=== PATIENT | female | born 1970 | race African-American/Black ===

== ENCOUNTER 2018-08-26 18:17 | Emergency (ER) | payer SELFPAY ==
[~2018-08-26] VITALS: Ht 162.6 cm; Wt 81.6 kg
[2018-08-26 18:44] VITALS: BP 165/81
--- NOTE | 2018-08-26 20:24 | RAD ---
Indication: Right elbow pain atraumatic. TECHNIQUE: 3 views of the right elbow COMPARISON: None FINDINGS: Well-corticated curvilinear bony fragment is seen measuring 9 mm in the region of the ulnar collateral ligament. No acute fracture or dislocation. No elbow joint effusion. IMPRESSION: Calcific density in the region of the ulnar collateral ligament likely calcified ligament from repetitive microtrauma. Nonemergent MRI of the elbow may be of additional benefit. Electronically signed by: Gt Johansen DO (08/26/2018 8:20 PM) [facility]
[2018-08-26] MEDS ORDERED: DICL50TA4 PO (20:40)
[2018-08-26] MEDS ORDERED: METH4TAB2 PO (20:40)
--- NOTE | 2018-08-26 20:40 | PHYS DOC ---
Past Medical History Past Medical History: Anemia Past Surgical History: Other Additional Past Surgical Histo: BILAT CARPAL TUNNEL,L KNEE,R ANKLE,HERNIA Alcohol Use: Occasionally Drug Use: None Adult General Chief Complaint Chief Complaint: UPPER EXTREMITY PAIN HPI HPI Patient is a 48 year old female who presents with 8 out of 10 right elbow pain that has been going on for 3 days. Patient denies any trauma. 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 She states the pain is worse when she takes the elbow through range of motion. She describes the pain as sharp. Review of Systems Review of Systems Constitutional: Denies fever or chills [] Musculoskeletal: Right right elbow pain Integument: Denies rash or skin lesions [] Neurologic: Denies headache, focal weakness or sensory changes [] All other systems were reviewed and found to be within normal limits, except as documented in this note. Allergies Allergies Allergies Coded Allergies Type Severity Reaction Last Updated Verified Iodinated Contrast- Oral and IV Dye Allergy Unknown 08/26/18 Yes iron Allergy Unknown 08/26/18 Yes Physical Exam Physical Exam Constitutional: Well developed, well nourished, no acute distress, non-toxic appearance. [] Skin: Warm, dry, no erythema, no rash. [] Back: No tenderness, no CVA tenderness. [] Extremities: Right elbow with no obvious deformity. No tenderness on palpation of the elbow. Pain elicited during range of motion though patient has full range of motion to the right elbow. Adequate radial, medial, ulnar sensation to the right upper extremity. 2 right radial pulse. Cap refill less than 2 seconds the right fingers. Neurologic: Alert and oriented X 3, normal motor function, normal sensory function, no focal deficits noted. [] Psychologic: Affect normal, judgement normal, mood normal. [] Current Patient Data Vital Signs Vital Signs Date Time Temp Pulse Resp B/P (MAP) Pulse Ox O2 Delivery O2 Flow Rate FiO2 08/26/18 18:44 98.6 76 18 165/81 (109) 97 Room Air 98.6 EKG EKG [] Radiology/Procedures Radiology/Procedures []PROCEDURE: ELBOW RIGHT 3V Indication: Right elbow pain atraumatic. TECHNIQUE: 3 views of the right elbow COMPARISON: None FINDINGS: Well-corticated curvilinear bony fragment is seen measuring 9 mm in the region of the ulnar collateral ligament. No acute fracture or dislocation. No elbow joint effusion. IMPRESSION: Calcific density in the region of the ulnar collateral ligament likely calcified ligament from repetitive microtrauma. Nonemergent MRI of the elbow may be of additional benefit. Electronically signed by: Winter Ly DO (08/26/2018 8:20 PM) [facility] DICTATED and SIGNED BY: WINTER LY DO DATE: 08/26/182017 Course & Med Decision Making Course & Med Decision Making Pertinent Labs and Imaging studies reviewed. (See chart for details) This is a 48-year-old female patient presented to the ED today with right elbow pain, no known injury. Right elbow x-rays interpreted by radiologist were noted for Calcific density in the region of the ulnar collateral ligament likely calcified ligament from repetitive microtrauma. Nonemergent MRI of the elbow may be of additional benefit. Lalo bandage applied to the right elbow by me. Neurovascular exam is intact. Ice elevation encouraged. Discharged with diclofenac and Medrol Dosepak. Provided orthopedic doctor for follow-up. Dragon Disclaimer Dragon Disclaimer This electronic medical record was generated, in whole or in part, using a voice recognition dictation system. Departure Departure Impression: Primary Impression: Elbow pain, right Disposition: 01 HOME, SELF-CARE Condition: STABLE Referrals: UNKNOWN PCP NAME (PCP) WILLY LOCK MD follow-up in 1-2 weeks Patient Instructions: Musculoskeletal Pain Additional Instructions: You were evaluated in the emergency room for right elbow pain. You were noted to have calcified ligament in the right elbow. Ice elevate the extremity. Take the prescribed medications as ordered. Follow-up with your doctor in 1-2 weeks of the provided orthopedic doctor. Scripts Diclofenac Sodium (DICLOFENAC SODIUM) 50 Mg Tablet.dr 1 TAB PO BID, #20 TAB 0 Refills Prov: LUAN MONROY [employer] 08/26/18 Methylprednisolone (MEDROL) 4 Mg Tab.ds.pk 1 PKG PO UD, #1 PKG Prov: LUAN MONROY [employer] 08/26/18 LUAN MONROY APRN Aug 26, 2018 20:40
== END 2018-08-26 20:44 | disposition home or self-care (01) ==
LOC: ER 18:17
DX: M25.521 Pain in right elbow (principal); Z88.8 Allergy status to other drugs, medicaments and biological substances
CPT/HCPCS: 73080; 99283

== ENCOUNTER 2018-09-30 21:35 | Emergency (ER) | payer SELFPAY ==
[~2018-09-30] VITALS: Ht 162.6 cm; Wt 86.2 kg
[~2018-09-30 21:35] MED LIST: DICL50TA4 PO; METH4TAB2 PO
[2018-09-30 22:11] LABS: BASO % 1 % (0-3); EOS # 0.4 x10^3/uL (0.0-0.7); EOS % 7 % (0-3); HEMATOCRIT 30.5 % (36.0-47.0); HEMOGLOBIN 9.9 g/dL (12.0-15.5); LYMPH # 1.6 x10^3/uL (1.0-4.8); LYMPH % 24 % (24-48); MEAN CORPUSCULAR HEMOGLOBIN 25 pg (25-35); MEAN CORPUSCULAR HGB CONC 32 g/dL (31-37); MEAN CORPUSCULAR VOLUME 78 fL (79-100); MONO # 0.7 x10^3/uL (0.0-1.1); MONO % 11 % (0-9); NEUT # 3.7 x10^3uL (1.8-7.7); NEUT % 58 % (31-73); PLATELET COUNT 286 x10^3/uL (140-400); RED CELL DISTRIBUTION WIDTH 15.7 % (11.5-14.5); WHITE BLOOD COUNT 6.4 x10^3/uL (4.0-11.0)
[2018-09-30] MEDS: IV NORMAL SALINE 1000ML BAG 1,000 ML IV SCH (22:11)
[2018-09-30] MEDS: ONDANSETRON PF 4 MG/2 ML VIAL. IV ONE (22:12)
[2018-09-30] MEDS: fentaNYL PF VIAL 100 MCG/2 ML VIAL IV PRN (22:12)
[2018-09-30 22:19] LABS: CREATININE 1.1 mg/dL (0.6-1.0); GFR 63.6; POTASSIUM 3.5 mmol/L (3.5-5.1)
[2018-09-30 22:25] LABS: ALBUMIN 3.1 g/dL (3.4-5.0); ALBUMIN/GLOBULIN RATIO 0.6 (1.0-1.7); TOTAL BILIRUBIN 0.4 mg/dL (0.2-1.0); TOTAL PROTEIN 8.6 g/dL (6.4-8.2)
[2018-09-30 22:34] LABS: BILIRUBIN,URINE NEGATIVE (NEG); CLARITY,URINE CLOUDY; COLOR,URINE YELLOW; NITRITE,URINE NEGATIVE (NEG); PH,URINE 6.5; PROTEIN,URINE NEGATIVE (NEG-TRACE)
[2018-09-30 22:46] LABS: BACTERIA,URINE FEW /HPF (0-FEW); RBC,URINE 0 /HPF (0-2); SQUAMOUS EPITHELIAL CELL,UR MOD /LPF; WBC,URINE OCC /HPF (0-4)
--- NOTE | 2018-09-30 22:55 | PHYS DOC ---
Past Medical History Past Medical History: Anemia, Anxiety, Hypertension Past Surgical History: Other Additional Past Surgical Histo: BILAT CARPAL TUNNEL,L KNEE,R ANKLE,HERNIA Alcohol Use: Occasionally Drug Use: None Adult General Chief Complaint Chief Complaint: OTHER COMPLAINTS [facility] HPI Patient is a 48-year-old female who presents complaining of right-sided back pain that started this morning at about 10:00. Patient states that pain was initially in the right mid to lower back region states the pain has progressively expanded to her upper back and neck as well as down to her right buttock and right leg. She denies any abdominal pain, nausea or vomiting. She also denies any urinary discomfort. She reports no loss of bowel or bladder control and has had no fever. She rates pain at a 9 out of 10 and describes the pain as feeling like her muscles are very tight. She states that pain is worsened with movement and with walking. She states her no alleviating factors. Patient denies any recent injuries. Review of Systems Review of Systems Constitutional: Denies fever or chills [] Respiratory: Denies cough or shortness of breath [] Cardiovascular: No additional information not addressed in HPI [] GI: Denies abdominal pain, nausea, vomiting or diarrhea [] : Denies dysuria or hematuria [] Musculoskeletal: Complains of right-sided back and neck pain [] Integument: Denies rash or skin lesions [] Neurologic: Denies headache, focal weakness or sensory changes [] All other systems were reviewed and found to be within normal limits, except as documented in this note. Current Medications Current Medications Current Medications Medications (Trade) Dose Ordered Sig/Kayli Start Time Stop Time Status Last Admin Dose Admin Fentanyl Citrate (Fentanyl 2ml Vial) 25 mcg PRN Q15MIN PRN 09/30/18 22:00 10/01/18 21:59 09/30/18 22:12 25 MCG Ondansetron HCl (Zofran) 4 mg 1X ONCE 09/30/18 22:00 09/30/18 22:04 DC 09/30/18 22:12 4 MG Sodium Chloride 1,000 ml @ 1,000 mls/hr Q1H 09/30/18 22:00 09/30/18 22:59 09/30/18 22:11 1,000 MLS/HR Allergies Allergies Allergies Coded Allergies Type Severity Reaction Last Updated Verified Iodinated Contrast- Oral and IV Dye Allergy Unknown 08/26/18 Yes iron Allergy Unknown 08/26/18 Yes Physical Exam Physical Exam Constitutional: Well developed, well nourished, no acute distress, non-toxic appearance. [] HENT: Normocephalic, atraumatic, bilateral external ears normal, oropharynx moist, no oral exudates, nose normal. [] Eyes: PERRLA, EOMI, conjunctiva normal, no discharge. [] Neck: Normal range of motion, supple, no stridor. There is reported tenderness to palpation in the right sided suboccipital musculature without palpable spasm [] Cardiovascular: Regular rate and rhythm [] Lungs & Thorax: Bilateral breath sounds clear to auscultation [] Abdomen: Bowel sounds normal, soft, no tenderness. [] Skin: Warm, dry, no erythema, no rash. [] Back: Examination of back demonstrates no spinous point tenderness. There is tissue texture change and findings of mild spasm noted around the thoracic lumbar junction in the area especially T11-12. There is reproducible tenderness throughout the thoracic and lumbar paraspinal musculature. [] Extremities: No tenderness, no cyanosis, no clubbing, ROM intact, no edema. [] Neurologic: Alert and oriented X 3, normal motor function, normal sensory function, no focal deficits noted. [] Current Patient Data Vital Signs Vital Signs Date Time Temp Pulse Resp B/P (MAP) Pulse Ox O2 Delivery O2 Flow Rate FiO2 09/30/18 22:12 20 97 Room Air 09/30/18 22:08 68 166/80 (108) 09/30/18 21:35 97.7 97.7 Lab Values Laboratory Tests Test 09/30/18 21:50 09/30/18 22:25 White Blood Count 6.4 x10^3/uL (4.0-11.0) Red Blood Count 3.90 x10^6/uL (3.50-5.40) Hemoglobin 9.9 g/dL (12.0-15.5) L Hematocrit 30.5 % (36.0-47.0) L Mean Corpuscular Volume 78 fL (79-100) L Mean Corpuscular Hemoglobin 25 pg (25-35) Mean Corpuscular Hemoglobin Concent 32 g/dL (31-37) Red Cell Distribution Width 15.7 % (11.5-14.5) H Platelet Count 286 x10^3/uL (140-400) Neutrophils (%) (Auto) 58 % (31-73) Lymphocytes (%) (Auto) 24 % (24-48) Monocytes (%) (Auto) 11 % (0-9) H Eosinophils (%) (Auto) 7 % (0-3) H Basophils (%) (Auto) 1 % (0-3) Neutrophils # (Auto) 3.7 x10^3uL (1.8-7.7) Lymphocytes # (Auto) 1.6 x10^3/uL (1.0-4.8) Monocytes # (Auto) 0.7 x10^3/uL (0.0-1.1) Eosinophils # (Auto) 0.4 x10^3/uL (0.0-0.7) Basophils # (Auto) 0.0 x10^3/uL (0.0-0.2) Sodium Level 138 mmol/L (136-145) Potassium Level 3.5 mmol/L (3.5-5.1) Chloride Level 103 mmol/L (98-107) Carbon Dioxide Level 29 mmol/L (21-32) Anion Gap 6 (6-14) Blood Urea Nitrogen 8 mg/dL (7-20) Creatinine 1.1 mg/dL (0.6-1.0) H Estimated GFR (Cockcroft-Gault) 63.6 BUN/Creatinine Ratio 7 (6-20) Glucose Level 117 mg/dL (70-99) H Calcium Level 9.0 mg/dL (8.5-10.1) Total Bilirubin 0.4 mg/dL (0.2-1.0) Aspartate Amino Transferase (AST) 28 U/L (15-37) Alanine Aminotransferase (ALT) 39 U/L (14-59) Alkaline Phosphatase 167 U/L (46-116) H Total Protein 8.6 g/dL (6.4-8.2) H Albumin 3.1 g/dL (3.4-5.0) L Albumin/Globulin Ratio 0.6 (1.0-1.7) L Urine Collection Type Unknown Urine Color Yellow Urine Clarity Cloudy Urine pH 6.5 Urine Specific [place] 1.015 Urine Protein Negative mg/dL (NEG-TRACE) Urine Glucose (UA) Negative mg/dL (NEG) Urine Ketones (Stick) Negative mg/dL (NEG) Urine Blood Negative (NEG) Urine Nitrite Negative (NEG) Urine Bilirubin Negative (NEG) Urine Urobilinogen Dipstick 1.0 mg/dL (0.2 mg/dL) Urine Leukocyte Esterase Trace (NEG) Urine RBC 0 /HPF (0-2) Urine WBC Occ /HPF (0-4) Urine Squamous Epithelial Cells Mod /LPF Urine Bacteria Few /HPF (0-FEW) Laboratory Tests 09/30/18 21:50 Laboratory Tests 09/30/18 21:50 EKG EKG [] Interpretation Time: EKG demonstrates normal sinus rhythm with rate of 68. Radiology/Procedures Radiology/Procedures [] Impressions: CT ABDOMEN PELVIS WO CONTRAST Indication: right flank pain x tonight Exposure: One or more of the following individualized dose reduction techniques were utilized for this examination: 1. Automated exposure control 2. Adjustment of the mA and/or kV according to patient size 3. Use of iterative reconstruction technique. Comparison: None are available. Contrast: No intravenous contrast given. No oral contrast per request. Evaluation of solid viscera, bowel and vasculature is compromised by the noncontrast technique. Lower thorax: Small bleb or cyst in the left lung base. Several nodular opacities in the right lung base. Largest nodule measures 10 mm. There is mild increased markings in the left lung base. Small pericardial effusion. Liver: Unremarkable Spleen: Unremarkable Pancreas: Unremarkable Adrenals: No evidence of mass. Kidneys: No obvious mass. Urinary tracts: No urolithiasis or hydronephrosis. Gallbladder: No calcified stone Aorta: Nonaneurysmal Lymph nodes: No significant enlargement GI tract: Mild retained stool throughout colon. No evidence of acute colitis. No evidence of bowel obstruction. Appendix is normal. Reproductive organs: There is some lobulated morphology of the uterine fundus, would most likely represent fibroids. Urinary bladder: Not well distended Peritoneum: No evidence of pneumoperitoneum. No free fluid. Abdominal wall: There is some linear density deep to the abdominal wall of uncertain significance, could indicate prior mesh placement if there has been previous surgery. Spine: Mildly degenerative. Bones: No destructive process identified. External Soft Tissue: No acute findings. IMPRESSION: 1. No evidence of urinary tract calculus or obstruction. 2. Nodular opacities in the right lung base, with a more infiltrative opacity in the left lung base. Largest nodule on the right measures 10 mm, and as per revised Fleischner guidelines, recommend follow-up CT in 3 months or PET/CT. Given the somewhat infiltrative appearance of some of these opacities, they all could be related to inflammatory or infectious etiology, and repeat CT chest after acute treatment could also be considered to see if they resolve. 3. Linear density deep to the anterior abdominal wall, uncertain significance, could reflect surgical mesh placement if the patient has had abdominal wall repair. No bowel herniation is seen. Electronically signed by: Gianluca Landers MD (09/30/2018 10:52 PM) [facility] Course & Med Decision Making Course & Med Decision Making Pertinent Labs and Imaging studies reviewed. (See chart for details) [] Dragon Disclaimer Dragon Disclaimer This electronic medical record was generated, in whole or in part, using a voice recognition dictation system. Departure Departure Impression: Primary Impression: Upper respiratory infection Additional Impression: Back pain Disposition: 01 HOME, SELF-CARE Condition: STABLE Referrals: UNKNOWN PCP NAME (PCP) Patient Instructions: Back Pain, Adult, Upper Respiratory Infection, Adult Scripts Amoxicillin/Potassium Clav (AUGMENTIN 875-125 TABLET) 1 Each Tablet 1 TAB PO BID, #20 TAB Prov: TATY COREAS Jr. DO 09/30/18 Cyclobenzaprine Hcl (CYCLOBENZAPRINE HCL) 10 Mg Tablet 1 TAB PO TID PRN for MUSCLE SPASMS, #30 TAB Prov: TATY COREAS Jr. DO 09/30/18 Hydrocodone/Apap 5-325 (NORCO 5-325 TABLET) 1 Each Tablet 1 EACH PO PRN Q6HRS PRN for PAIN, #15 as needed for pain Prov: TATY COREAS Jr. DO 09/30/18 Problem Qualifiers Primary Impression: Upper respiratory infection URI type: unspecified URI Qualified Codes: J06.9 - Acute upper respiratory infection, unspecified Additional Impression: Back pain Back pain location: back pain in unspecified location Chronicity: acute Back pain laterality: right Qualified Codes: M54.9 - Dorsalgia, unspecified ATTY COREAS Jr. DO Sep 30, 2018 22:55
[2018-09-30] MEDS ORDERED: AMOX1TAB61 PO (23:17)
[2018-09-30] MEDS ORDERED: HYDR-3164 PO (23:17)
[2018-09-30] MEDS ORDERED: CYCL10TA2 PO (23:17)
[2018-09-30 23:34] VITALS: BP 140/68
--- NOTE | 2018-10-01 06:56 | EKG ---
[facility] [address] [place] [address] Test Date: 2018-09-30 Test Time: 21:45:37 Pat Name: JERAMIE SNELL Department: Room: Gender: F [employer] Work[employer]: : 1970 Requested By: TATY COREAS Order Number: [id number] Reading MD: Measurements Intervals [place] Rate: 68 P: 56 MI: 134 QRS: 42 QRSD: 84 T: 44 QT: 418 QTc: 449 Interpretive Statements SINUS RHYTHM NORMAL ECG No previous ECG available for comparison
== END 2018-09-30 23:34 | disposition home or self-care (01) ==
LOC: ER 21:35
DX: J06.9 Acute upper respiratory infection, unspecified (principal); M54.2 Cervicalgia; M62.830 Muscle spasm of back; F41.9 Anxiety disorder, unspecified; I10 Essential (primary) hypertension; Z88.8 Allergy status to other drugs, medicaments and biological substances; Z91.041 Radiographic dye allergy status
CPT/HCPCS: 36415; 74176; 80053; 81001; 82962; 85025; 87086; 93005; 96374; 96375; 99284; J2405; J3010; J7030

== ENCOUNTER 2019-03-31 21:32 | Emergency (ER) | payer SELFPAY ==
[~2019-03-31] VITALS: Ht 162.6 cm; Wt 95.3 kg
[~2019-03-31 21:32] MED LIST changes: +AMOX1TAB61 PO; +CYCL10TA2 PO; +HYDR-3164 PO
[2019-03-31 21:51] VITALS: BP 171/90
--- NOTE | 2019-03-31 22:04 | PHYS DOC ---
Past Medical History Past Medical History: Anemia, Anxiety, Hypertension Past Surgical History: Other Additional Past Surgical Histo: BILAT CARPAL TUNNEL,L KNEE,R ANKLE,HERNIA Alcohol Use: Occasionally Drug Use: None Adult General Chief Complaint Chief Complaint: FOOT INJURY PAIN HPI HPI Patient is a 48 year old female who presents with right foot pain is ongoing for several days, and has gotten worse since since 6 PM tonight. The patient states that the foot is been feeling warm to touch. Denies any trauma to the foot. Rates her pain as 9 out of 10. Review of Systems Review of Systems Constitutional: Denies fever or chills [] Eyes: Denies change in visual acuity, redness, or eye pain [] HENT: Denies nasal congestion or sore throat [] Respiratory: Denies cough or shortness of breath [] Cardiovascular: No additional information not addressed in HPI [] GI: Denies abdominal pain, nausea, vomiting, bloody stools or diarrhea [] : Denies dysuria or hematuria [] Musculoskeletal: reports R foot pain. Integument: Denies rash or skin lesions [] Neurologic: Denies headache, focal weakness or sensory changes [] Endocrine: Denies polyuria or polydipsia [] Complete systems were reviewed and found to be within normal limits, except as documented in this note. Current Medications Current Medications Current Medications Medications (Trade) Dose Ordered Sig/Kayli Start Time Stop Time Status Last Admin Dose Admin Ketorolac Tromethamine (Toradol 30mg Vial) 30 mg 1X ONCE 03/31/19 22:15 03/31/19 22:16 DC 03/31/19 22:25 30 MG Allergies Allergies Allergies Coded Allergies Type Severity Reaction Last Updated Verified Iodinated Contrast- Oral and IV Dye Allergy Unknown 08/26/18 Yes iron Allergy Unknown 08/26/18 Yes Physical Exam Physical Exam Constitutional: Well developed, well nourished, no acute distress, non-toxic lizet earance. [] HENT: Normocephalic, atraumatic, bilateral external ears normal, oropharynx moist, no oral exudates, nose normal. [] Eyes: PERRLA, EOMI, conjunctiva normal, no discharge. [] Neck: Normal range of motion, no tenderness, supple, no stridor. [] Cardiovascular:Heart rate regular rhythm, no murmur [] Lungs & Thorax: Bilateral breath sounds clear to auscultation [] Abdomen: Bowel sounds normal, soft, no tenderness, no masses, no pulsatile masses. [] Skin: Warm, dry, no erythema, no rash. [] Back: No tenderness, no CVA tenderness. [] Extremities: R foot is tender, and warm to touch. Neurologic: Alert and oriented X 3, normal motor function, normal sensory function, no focal deficits noted. [] Psychologic: Affect normal, judgement normal, mood normal. [] Current Patient Data Vital Signs Vital Signs Date Time Temp Pulse Resp B/P (MAP) Pulse Ox O2 Delivery O2 Flow Rate FiO2 03/31/19 21:51 98.1 67 16 171/90 (117) 94 Room Air 98.1 Lab Values Laboratory Tests Test 03/31/19 22:10 White Blood Count 5.5 x10^3/uL (4.0-11.0) Red Blood Count 4.30 x10^6/uL (3.50-5.40) Hemoglobin 12.1 g/dL (12.0-15.5) Hematocrit 36.0 % (36.0-47.0) Mean Corpuscular Volume 84 fL (79-100) Mean Corpuscular Hemoglobin 28 pg (25-35) Mean Corpuscular Hemoglobin Concent 34 g/dL (31-37) Red Cell Distribution Width 19.5 % (11.5-14.5) H Platelet Count 255 x10^3/uL (140-400) Neutrophils (%) (Auto) 59 % (31-73) Lymphocytes (%) (Auto) 26 % (24-48) Monocytes (%) (Auto) 11 % (0-9) H Eosinophils (%) (Auto) 5 % (0-3) H Basophils (%) (Auto) 0 % (0-3) Neutrophils # (Auto) 3.2 x10^3/uL (1.8-7.7) Lymphocytes # (Auto) 1.4 x10^3/uL (1.0-4.8) Monocytes # (Auto) 0.6 x10^3/uL (0.0-1.1) Eosinophils # (Auto) 0.2 x10^3/uL (0.0-0.7) Basophils # (Auto) 0.0 x10^3/uL (0.0-0.2) Sodium Level 139 mmol/L (136-145) Potassium Level 3.7 mmol/L (3.5-5.1) Chloride Level 104 mmol/L (98-107) Carbon Dioxide Level 28 mmol/L (21-32) Anion Gap 7 (6-14) Blood Urea Nitrogen 11 mg/dL (7-20) Creatinine 0.9 mg/dL (0.6-1.0) Estimated GFR (Cockcroft-Gault) 80.2 BUN/Creatinine Ratio 12 (6-20) Glucose Level 120 mg/dL (70-99) H Uric Acid 5.5 mg/dL (2.6-6.0) Calcium Level 9.0 mg/dL (8.5-10.1) Total Bilirubin 0.5 mg/dL (0.2-1.0) Aspartate Amino Transferase (AST) 27 U/L (15-37) Alanine Aminotransferase (ALT) 37 U/L (14-59) Alkaline Phosphatase 133 U/L (46-116) H Total Protein 8.6 g/dL (6.4-8.2) H Albumin 3.6 g/dL (3.4-5.0) Albumin/Globulin Ratio 0.7 (1.0-1.7) L Laboratory Tests 03/31/19 22:10 Laboratory Tests 03/31/19 22:10 EKG EKG [] Radiology/Procedures Radiology/Procedures Interpreted by Dr. Spring No obvious fracture or deformity Course & Med Decision Making Course & Med Decision Making Pertinent Labs and Imaging studies reviewed. (See chart for details) Will check labs to r/o gout, and get x-ray. labs are unremarkable, x-ray is negative. Dragon Disclaimer Dragon Disclaimer This electronic medical record was generated, in whole or in part, using a voice recognition dictation system. Departure Departure Impression: Primary Impression: Foot pain, right Disposition: 01 HOME, SELF-CARE Condition: STABLE Referrals: NO PCP (PCP) Additional Instructions: Thank you for visiting [facility]. We appreciate you trusting us with your care. If any additional problems come up don't hesitate to return to visit us. Please follow up with your primary care provider so they can plan additional care if needed and know about the problem that you had. If symptoms worsen come back to the Emergency Department. Any concerning symptoms that start such as chest pain, shortness of air, weakness or numbness on one side of the body, running high fevers or any other concerning symptoms return to the ER. Scripts Naproxen (NAPROXEN) 500 Mg Tablet 1 TAB PO BID, #60 TAB Prov: RYAN DICKEY APRN 03/31/19 RYAN DICKEY APRN Mar 31, 2019 22:04
[2019-03-31] MEDS ORDERED: KETOROLAC 30 MG/ML VIAL. IM ONE (22:15)
[2019-03-31 22:18] LABS: BASO % 0 % (0-3); EOS # 0.2 x10^3/uL (0.0-0.7); EOS % 5 % (0-3); HEMOGLOBIN 12.1 g/dL (12.0-15.5); LYMPH # 1.4 x10^3/uL (1.0-4.8); LYMPH % 26 % (24-48); MEAN CORPUSCULAR HEMOGLOBIN 28 pg (25-35); MEAN CORPUSCULAR HGB CONC 34 g/dL (31-37); MEAN CORPUSCULAR VOLUME 84 fL (79-100); MONO # 0.6 x10^3/uL (0.0-1.1); MONO % 11 % (0-9); NEUT # 3.2 x10^3/uL (1.8-7.7); NEUT % 59 % (31-73); PLATELET COUNT 255 x10^3/uL (140-400); RED CELL DISTRIBUTION WIDTH 19.5 % (11.5-14.5); WHITE BLOOD COUNT 5.5 x10^3/uL (4.0-11.0)
[2019-03-31 22:34] LABS: CREATININE 0.9 mg/dL (0.6-1.0); GFR 80.2; POTASSIUM 3.7 mmol/L (3.5-5.1)
[2019-03-31 22:40] LABS: ALBUMIN 3.6 g/dL (3.4-5.0); ALBUMIN/GLOBULIN RATIO 0.7 (1.0-1.7); TOTAL BILIRUBIN 0.5 mg/dL (0.2-1.0); TOTAL PROTEIN 8.6 g/dL (6.4-8.2); URIC ACID 5.5 mg/dL (2.6-6.0)
[2019-03-31] MEDS ORDERED: NAPR-514 PO (23:06)
--- NOTE | 2019-04-01 00:46 | RAD ---
Three-view right foot radiographs 03/31/2019 CLINICAL HISTORY: Right foot injury. Pain. AP, lateral and oblique digital radiographs of right foot were obtained. No fracture or dislocation right foot is seen. Mild degenerative changes are seen throughout the interphalangeal joints of the right foot along the first MTP joint. Mild enthesophyte formation seen involving the posterior right calcaneus. IMPRESSION: No fracture or dislocation of the right foot is seen. Electronically signed by: Brodie Armenta MD (04/01/2019 12:43 AM) [facility]
== END 2019-03-31 23:16 | disposition home or self-care (01) ==
LOC: ER 21:32
DX: M79.671 Pain in right foot (principal); F41.9 Anxiety disorder, unspecified; I10 Essential (primary) hypertension; Z91.041 Radiographic dye allergy status; Z91.09 Other allergy status, other than to drugs and biological substances
CPT/HCPCS: 36415; 73630; 80053; 84550; 85025; 96372; 99285; J1885